=== PATIENT | female | born 1965 | race Caucasian/White ===

== ENCOUNTER 2018-02-09 14:13 | Emergency (ER) | payer OTHER ==
[2018-02-09] MEDS ORDERED: DIAZEPAM 2 MG TABLET ONE (14:47)
[2018-02-09] MEDS ORDERED: LIDOCAINE 1% MPF 2 ML AMPULE ONE (14:50)
[2018-02-09] MEDS ORDERED: LIDOCAINE 2% MPF 5 ML VIAL ONE (14:51)
--- NOTE | 2018-02-09 15:18 | RAD REPORT ---
EXAM DESCRIPTION: CT - Facial Bones W/ Mpr - 02/09/2018 2:51 pm CLINICAL HISTORY: Blunt force trauma to the face COMPARISON: None. TECHNIQUE: Axial 2 millimeter thick images of the facial bones were obtained with sagittal and coron al reconstruction imaging. All CT scans are performed using dose optimization technique as appropriate and may include automated exposure control or mA/KV adjustment according to patient size. FINDINGS: No fracture of the mandible. Condyles are normally positioned. No skullbase fracture. Mast oid air cells and middle ears are clear. Comminuted nasal bone fracture is present near the nasofront al suture. Minimal left displacement. Patient has left deviation of the nasal septum without acute se ptum fracture seen. The deviation may predate the acute injury. Paranasal sinuses are clear of acute finding. There is minimal mucosal thickening floor of the left m axillary sinus. No globe or orbital content abnormality. IMPRESSION: Comminuted nasal bone fracture with very minimal left displacement. Left deviation of the nasal septum which may predate the injury.
--- NOTE | 2018-02-09 16:00 | EDPHYS ---
Physician Documentation [facility] Name: Karine Yeboah Age: 53 yrs Sex: Female : 1965 Arrival Date: 02/09/2018 Time: 14:16 Bed 24 Private MD: Mer Pina K ED Physician Pedro Parson HPI: 02/09 14:44 This 53 yrs old Female presents to ER via Ambulatory with complaints of rn Facial Injury. 14:44 The patient or guardian reports injury, a laceration, pain. The complaints affect the rn nose. Context of injury: The problem was sustained at home, resulted from a direct blow. Associated signs and symptoms: Loss of consciousness: This patient did not experience any loss of consciousness. Pertinent positives: headache, Pertinent negatives: the patient has not experienced a loss of conciousness. Severity of symptoms: At their worst the symptoms were mild, in the emergency department the symptoms are unchanged. The patient has not experienced similar symptoms in the past. Reports getting something from top of closet, trophy fell and struck nose, did not hit head, + mild headache from pain, + laceration, + nosebleed that has resolved. . CLIENT EXPERIENCE CONSULTANT: 14:59 LMP N/A - . 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 - Social history:: Smoking status: Patient/guardian denies using tobacco. - Ebola Screening: : Patient denies exposure to infectious person Patient denies travel to an Ebola-affected area in the 21 days before illness onset. - Family history:: not pertinent. - Hospitalizations: : No recent hospitalization is reported. ROS: 14:44 Constitutional: Negative for fever, chills, and weight loss, Eyes: Negative for injury, rn pain, redness, and discharge, ENT: + nose injury Neuro: Negative for weakness, numbness, tingling, and seizure. Exam: 14:46 Constitutional: This is a well developed, well nourished patient who is awake, alert, rn and in no acute distress. Head/Face: Normocephalic, 1.5 cm linear superficial laceration to nasal bridge, no active bleeding, + left nare with dry blood. Eyes: Pupils equal round and reactive to light, extra-ocular motions intact. Lids and lashes normal. Conjunctiva and sclera are non-icteric and not injected. Cornea within normal limits. Periorbital areas with no swelling, redness, or edema. Neuro: Awake and alert, GCS 15, oriented to person, place, time, and situation. Cranial nerves II-XII grossly intact. Motor strength 5/5 in all extremities. Sensory grossly intact. Cerebellar exam normal. Normal gait. Vital Signs: 14:29 BP 143 / 90; Pulse 72; Resp 16; Temp 97.9(O); Pulse Ox 99% on R/A; Weight 68.04 kg; ss Height 5 ft. 6 in. (167.64 cm); Pain 4/10; 15:30 BP 137 / 81; Pulse 70; Resp 18; Pulse Ox 100% on R/A; Pain 3/10; tw2 14:29 Body Mass Index 24.21 (68.04 kg, 167.64 cm) Dominik Coma Score: 14:44 Eye Response: spontaneous(4). Verbal Response: oriented(5). Motor Response: obeys rn commands(6). Total: 15. 15:57 Eye Response: spontaneous(4). Verbal Response: oriented(5). Motor Response: obeys rn commands(6). Total: 15. Procedures: 15:57 Reduction: of the nose, using manipulation, Patient tolerated well. rn Laceration: 15:57 Wound Repair of 1.5cm ( 0.6in ) subcutaneous laceration to bridge of nose. Distal rn neuro/vascular/tendon intact. Anesthesia: Regional Block with 5 mls of 2% lidocaine. Wound prep: Extensive cleansing by nurse. Skin closed with 4 6-0 fast absorbing gut using interrupted sutures and sterile technique. Dressed with steri-strips. Patient tolerated well. MDM: 14:29 Patient medically screened. rn 15:57 Differential diagnosis: Contusion of Hematoma on Laceration of fracture. Data reviewed: rn vital signs, nurses notes, radiologic studies, CT scan, and as a result, I will discharge patient. Counseling: I had a detailed discussion with the patient and/or guardian regarding: the historical points, exam findings, and any diagnostic results supporting the discharge/admit diagnosis, radiology results, the need for outpatient follow up, to return to the emergency department if symptoms worsen or persist or if there are any questions or concerns that arise at home. Special discussion: I discussed with the patient/guardian in detail that at this point there is no indication for admission to the hospital. It is understood, however, that if the symptoms persist or worsen the patient needs to return immediately for re-evaluation. Based on the history and exam findings, there is no indication for further emergent testing or inpatient evaluation. I discussed with the patient/guardian the need to see the ENT specialist for further evaluation of the symptoms. ED course: Nasal fracture and laceration. 02/09 14:39 Order name: CT Facial Bones W/O Con; Complete Time: 15:21 rn 02/09 14:40 Order name: Suture Tray at Bedside; Complete Time: 14:41 rn Administered Medications: 14:41 Drug: Valium 2 mg Route: PO; tw2 15:30 Follow up: Response: No adverse reaction; Pain is decreased tw2 14:47 Not Given (md discretion): Lidocaine (1 %) 1 vials 5 ml Infiltration once; to bedside tw2 15:29 Drug: Lidocaine (2 %) Syringe 100 mg {Note: via Dr. Parson.} Volume: 5 ml; Route: tw2 Infiltration; Site: affected area; 16:06 Follow up: Response: No adverse reaction tw2 Disposition: 02/09/18 15:59 Discharged to Home. Impression: Fracture of nasal bones, Facial laceration. - Condition is Stable. - Discharge Instructions: Nasal Fracture, Sutured Wound Care. - Prescriptions for Augmentin 875- 125 mg Oral Tablet - take 1 tablet by ORAL route every 12 hours for 10 days; 20 tablet. - Medication Reconciliation Form, Thank You Letter, Antibiotic Education, Prescription Opioid Use, Work release form form. - Follow up: Serene Trevizo MD; When: 1 week; Reason: Recheck today's complaints, Re-evaluation by your physician. - Problem is new. - Symptoms have improved. Signatures: Dispatcher [employer] EDMS Pedro Parson MD MD rn Smirch, Shelby, RN RN ss Wise, Tara, RN RN tw2 Corrections: (The following items were deleted from the chart) 16:08 15:59 02/09/2018 15:59 Discharged to Home. Impression: Fracture of nasal bones; Facial tw2 laceration. Condition is Stable. Forms are Work release form, Medication Reconciliation Form, Thank You Letter, Antibiotic Education, Prescription Opioid Use. Follow up: Serene Trevizo; When: 1 week; Reason: Recheck today's complaints, Re-evaluation by your physician. Problem is new. Symptoms have improved. rn
--- NOTE | 2018-02-09 16:00 | ER ---
Nurse's Notes [facility] Name: Karine Yeboah Age: 53 yrs Sex: Female : 1965 Arrival Date: 02/09/2018 Time: 14:16 Bed 24 Private MD: Mer Pina K Diagnosis: Fracture of nasal bones;Facial laceration Presentation: 02/09 14:27 Presenting complaint: Patient states: Trophy fell from cabinet above striking patient ss on bridge of nose. Pt has approx 1.5 cm laceration to bridge of nose and reported bleeding from nostrils. Transition of care: patient was not received from another setting of care. Onset of symptoms was February 09, 2018. Risk Assessment: Do you want to hurt yourself or someone else? Patient reports no desire to harm self or others. Initial Sepsis Screen: Does the patient meet any 2 criteria? No. Patient's initial sepsis screen is negative. Does the patient have a suspected source of infection? No. Patient's initial sepsis screen is negative. Care prior to arrival: None. 14:27 Method Of Arrival: Ambulatory ss 14:27 Acuity: IRINA 4 ss DISTILLER: 14:59 LMP N/A - . 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 - Social history:: Smoking status: Patient/guardian denies using tobacco. - Ebola Screening: : Patient denies exposure to infectious person Patient denies travel to an Ebola-affected area in the 21 days before illness onset. - Family history:: not pertinent. - Hospitalizations: : No recent hospitalization is reported. Screenin:58 Abuse screen: Denies threats or abuse. Nutritional screening: No deficits noted. tw2 Tuberculosis screening: No symptoms or risk factors identified. Fall Risk None identified. Assessment: 14:30 General: Appears in no apparent distress. well groomed, Behavior is calm, cooperative, tw2 appropriate for age. Pain: Complains of pain in nose. Neuro: Level of Consciousness is awake, alert, obeys commands, Oriented to person, place, time, situation. Cardiovascular: Capillary refill < 3 seconds Patient's skin is warm and dry. Respiratory: Airway is patent Respiratory effort is even, unlabored, Respiratory pattern is regular, symmetrical. EENT: Reports pain bleeding from the left nare with deviation noted to the bridge of nose. Injury Description: Laceration sustained to bridge of nose. 15:30 Reassessment: Patient appears in no apparent distress at this time. No changes from tw2 previously documented assessment. Patient and/or family updated on plan of care and expected duration. Pain level reassessed. Patient is alert, oriented x 3, equal unlabored respirations, skin warm/dry/pink. 16:06 Reassessment: Patient appears in no apparent distress at this time. No changes from tw2 previously documented assessment. Patient and/or family updated on plan of care and expected duration. Pain level reassessed. Patient is alert, oriented x 3, equal unlabored respirations, skin warm/dry/pink. Vital Signs: 14:29 BP 143 / 90; Pulse 72; Resp 16; Temp 97.9(O); Pulse Ox 99% on R/A; Weight 68.04 kg; ss Height 5 ft. 6 in. (167.64 cm); Pain 4/10; 15:30 BP 137 / 81; Pulse 70; Resp 18; Pulse Ox 100% on R/A; Pain 3/10; tw2 14:29 Body Mass Index 24.21 (68.04 kg, 167.64 cm) ss Dominik Coma Score: 14:44 Eye Response: spontaneous(4). Verbal Response: oriented(5). Motor Response: obeys rn commands(6). Total: 15. 15:57 Eye Response: spontaneous(4). Verbal Response: oriented(5). Motor Response: obeys rn commands(6). Total: 15. ED Course: 14:16 Patient arrived in ED. sb2 14:16 Mer Pina MD is Private Physician. sb2 14:22 Bed in low position. Call light in reach. Adult w/ patient. Pulse ox on. NIBP on. tw2 14:27 Anastasiya Blanchard RN is Primary Nurse. tw2 14:28 Triage completed. ss 14:29 Pedro Parson MD is Attending Physician. rn 14:29 Arm band placed on right wrist. ss 14:[address] vm2 14:51 CT Facial Bones W/O Con In Process Unspecified. EDMS 14:58 CT completed. Patient tolerated procedure well. Patient moved back from CT. mw3 15:30 Assist provider with laceration repair on bridge of nose that was 2.5 cm. or less using tw2 Steri-strips. Set up tray. Performed by Pedro Parson MD Patient tolerated well. 15:59 Serene Trevizo MD is Referral Physician. rn 16:06 No provider procedures requiring assistance completed. Patient did not have IV access tw2 during this emergency room visit. Administered Medications: 14:41 Drug: Valium 2 mg Route: PO; tw2 15:30 Follow up: Response: No adverse reaction; Pain is decreased tw2 14:47 Not Given (md discretion): Lidocaine (1 %) 1 vials 5 ml Infiltration once; to bedside tw2 15:29 Drug: Lidocaine (2 %) Syringe 100 mg {Note: via Dr. Parson.} Volume: 5 ml; Route: tw2 Infiltration; Site: affected area; 16:06 Follow up: Response: No adverse reaction tw2 Outcome: 15:59 Discharge ordered by . rn 16:06 Discharged to home ambulatory, with family. tw2 16:06 Condition: stable 16:06 Discharge instructions given to patient, family, Instructed on discharge instructions, follow up and referral plans. medication usage, wound care, Demonstrated understanding of instructions, follow-up care, medications, wound care, Prescriptions given X 1. 16:08 Patient left the ED. tw2 Signatures: Dispatcher [employer] EDMS Pedro Parson MD MD rn Smirch, Shelby, RN RN ss Wise, Tara, RN RN tw2 Jo Vera Nayla Pineda 2 Cait Caputo mw3
== END 2018-02-09 16:08 | disposition home or self-care (01) ==
LOC: ER 14:13
PROC: 0JQ10ZZ Repair Face Subcutaneous Tissue and Fascia, Open Approach (ICD-10-PCS; principal; 2018-02-09)
PROC: 0NSBXZZ Reposition Nasal Bone, External Approach (ICD-10-PCS; 2018-02-09)
DX: S02.2XXA Fracture of nasal bones, initial encounter for closed fracture (principal); S01.21XA Laceration without foreign body of nose, initial encounter; W22.8XXA Striking against or struck by other objects, initial encounter; Y93.89 Activity, other specified; Y92.009 Unspecified place in unspecified non-institutional (private) residence as the place of occurrence of the external cause; Z88.1 Allergy status to other antibiotic agents; Z88.8 Allergy status to other drugs, medicaments and biological substances
CPT/HCPCS: 70486; 76377; 99284; J2001

== ENCOUNTER 2018-11-25 08:11 | Emergency (ER) | payer OTHER ==
--- OUTSIDE RECORDS SUMMARY | 2018-11-25 08:14 | XMS REPORT | Continuity of Care Document ---
:1965 Author Organization [employer] Care Team Providers Name Role Phone [employer] Unavailable Unavailable Problems Problem Status Onset Classification Date Comments Source Date Reported Fever Active Finding 03/08/[address] [facility] [place] Colitis Active Finding 03/08/[address] [facility] [place] Medications Medication Details Route Status Patient Ordering Order Source Instructions Provider Date Ciprofloxacin DAILY Active [facility] [place] Metronidazole Q8H Active [facility] [place] Azathioprine DAILY Active [facility] [place] Allergies, Adverse Reactions, Alerts Substance Category Reaction Severity Reaction Status Date Comments Source type Reported sulfamethoxaz Itching/H Allergy to Active [facility] Sub[facility] [place] trimethoprim Itching/H Allergy to Active [facility] will/R[facility] Sub[facility] [place] Immunizations No Data Provided for This Section Results Order Name Results Value Reference Date Interpretation Comments Source Range Laboratory White Blood 4.5 4.3 - 10.9 03/[address] [facility] Count /2016 [facility] [place] Laboratory Red Cell 13.8 12.1 - 03/[address] [facility] [facility] Distribution 15.2 [facility] Width [place] Laboratory Red Blood 3.38 3.86 - 03/[address] [facility] [address] [facility] Count 4.86 /2016 [facility] [place] Laboratory Platelet 205 152 - 406 03/[address] [facility] [address] [facility] Count /2017 [facility] [place] Laboratory Neutrophils % 76.3 41.7 - 03/[address] [facility] [address] [facility] 73.7 /2016 [facility] [place] [facility] Monocytes % 6.1 3.3 - 12.3 03/[address] [address] Studies /2017 [facility] [place] Laboratory Mean Platelet 8.7 7.6 - 11.3 03/[address] [facility] [address] Studies Volume /2016 [facility] [place] [facility] Mean 107.6 80 - 100 03/[address] [facility] [address] Studies Corpuscular /2016 [facility] - Volume [place] [facility] Mean 34.3 32.0 - 03/08 [facility]. Studies Corpuscular 36.0 /2016 [facility] Hemoglobin [place] Concent Laboratory Mean 37.0 27.0 - 03/08 [facility]. Studies Corpuscular 35.0 /2016 [facility] Hemoglobin [place] Laboratory Lymphocytes % 15.6 15.3 - 03/[address] [facility] [address] Studies 44.8 /2017 [facility] [place] [facility] Hemoglobin 12.5 12.0 - 03/[address] [facility] [address] Studies 15.0 /2016 [facility] [place] [facility] Hematocrit 36.4 36.0 - 03/08 [facility]. Studies 45.0 /2016 [facility] [place] Laboratory Eosinophils % 1.3 0 - 4.4 03/[address] [facility] [address] Studies [facility] [place] [facility] Clumped Clumped 03/08 [facility]. Studies Platelets Platelets /2016 [facility] [place] Laboratory Blood Blood 03/08 [facility]. Studies Morphology Morphology /2016 [facility] - Comment Comment [place] [facility] Basophils % 0.7 0 - 1.3 03/08 [facility]. Studies [facility] [place] [facility] Absolute 3.4 1.8 - 8.0 03/08 [facility]. Studies Neutrophil /2016 [facility] [place] [facility] Absolute 0.3 0.1 - 1.3 03/08 [facility]. Studies Monocytes [facility] - (CBC) [place] [facility] Absolute 0.7 0.7 - 4.9 03/08 [facility]. Studies Lymphocytes [facility] - (CBC) [place] [facility] Absolute 0.1 0 - 0.5 03/08 [facility]. Studies Eosinophils [facility] - (CBC) [place] Laboratory Absolute 0.0 0 - 0.5 03/08 [facility]. Studies Basophils [facility] - (CBC) [place] [facility] Total 0.8 0.3 - 1.2 03/08 [facility]. Studies Bilirubin [facility] [place] [facility] Sodium Level 136 135 - 145 03/[address] [facility] [address] Studies [facility] [place] Laboratory Serum Total 6.0 6.0 - 8.3 03/08 [facility] Studies Protein /2017 [employer] - [place] Laboratory Potassium 4.5 3.6 - 5.0 03/08 [facility]. Studies Level /2016 [facility] [place] Laboratory Phosphorus 2.5 2.5 - 4.3 03/08 [facility]. Studies Level /2016 [facility] [place] Laboratory Magnesium 1.9 1.8 - 2.5 03/08 [facility] Studies Level /2016 [facility] [place] [facility] Glucose Level 79 65 - 120 03/08 [facility]. Studies /2016 [facility] [place] Laboratory Globulin 2.6 2.3 - 3.5 03/08 [facility]. Studies /2017 [facility] [place] Laboratory Estimat >90 90 03/08 [facility]. Studies Glomerular /2016 [facility] - Filtration [place] Rate Laboratory Creatinine 0.51 0.44 - 03/08 [facility] Studies 1.00 /2016 [employer] - [place] Laboratory Chloride 106 101 - 111 03/08 [facility] Studies Level /2016 [facility] [place] Laboratory Carbon 25 21 - 31 03/08 [facility] Studies Dioxide Level /2016 kes - [place] Laboratory Calcium Level 8.7 8.5 - 10.5 03/08 [facility]. Studies /2016 [facility] [place] Laboratory Blood Urea 6 6 - 20 03/08 [facility] Studies Nitrogen /2016 [employer] - [place] Laboratory Aspartate 19 10 - 42 03/08 [facility] Studies Amino Transf /2016 ernestina - (AST/SGOT) [place] [facility] Alkaline 71 42 - 121 03/08 [facility] Studies Phosphatase /2016 [facility] [place] Laboratory Albumin/Globu 1.3 1.1 - 1.8 03/08 [facility] Studies juan Ratio /2016 [facility] [place] Laboratory Albumin 3.4 3.2 - 5.5 03/08 [facility]. Studies /2017 [facility] - [place] Laboratory Alanine 14 10 - 60 03/08 [facility] Studies Aminotransfer /2016 [employer] - ase [place] (ALT/SGPT) Laboratory Vitamin B12 289 180 - 914 03/07 [facility] Studies Level /2017 [facility] [place] Laboratory Serum Folate 17.7 5.21 03/07 [facility]. Studies /2017 [facility] - [place] Laboratory Serum Serum 03/[address] [facility] [address] Studies /2016 [facility] - Test, Test, [place] Qualitative Qualitative Laboratory Macrocytosis Macrocytosi 03/[address] [facility] [address] Studies s [facility] [place] Laboratory Direct 0.1 0 - 0.2 03/[address] [facility] [address] Studies Bilirubin [facility] [place] Laboratory Lipase 33 22 - 51 03/[address] [facility] [address] Studies [facility] [place] Laboratory Urine pH 6.0 03/[address] [facility] [address] Studies [facility] [place] Laboratory Urine Total Urine Total 03/[address] [facility] [address] Studies Protein Protein [facility] [place] Laboratory Urine <1.005 03/[address] [facility] [address] Studies Specific [facility] - [place] Laboratory Urine Nitrite Urine 03/06 [facility]. Studies Nitrite [facility] [place] Laboratory Urine Urine 03/06 [facility]. Studies Leukocyte Leukocyte [facility] - Esterase Esterase [place] Laboratory Urine Ketones Urine 03/06 [facility]. Studies Ketones [facility] [place] Laboratory Urine Glucose Urine 03/[address] [facility] [address] Studies Glucose [facility] - [place] Laboratory Urine Blood Urine Blood 03/[address] [facility] [address] Studies [facility] [place] Laboratory Urine WBC <5 03/[address] [facility] [address] Studies [facility] [place] Laboratory Urine <5 03/06 [facility]. Studies Squamous [facility] - Epithelial [place] Cells Laboratory Urine RBC <5 03/06 [facility]. Studies [facility] [place] Laboratory Urine Culture Urine 03/06 [facility]. Studies Reflexed Culture [facility] - Reflexed [place] Laboratory Urine <20 03/06 [facility]. Studies Bacteria [facility] [place] Pathology Reports No Data Provided for This Section Diagnostic Reports No Data Provided for This Section Consultation Notes No Data Provided for This Section Discharge Summaries No Data Provided for This Section History and Physicals No Data Provided for This Section Vital Signs Vital Sign Value Date Comments Source Temperature Oral (F) 98.7 F 03/08/[address] [facility] [address] [facility] [place] Heart Rate 57 03/08/[address] [facility] [address] [facility] [place] Respitory Rate 16 03/08/2017 [facility] [place] Systolic (mm Hg) 120 03/08/2017 [facility] [place] Diastolic (mm Hg) 57 03/08/2017 ALEJO Gomez Height 66 03/08/2017 ALEJO Gomez Weight 135.30 03/08/2017 ALEJO Lopezosporcollin Encounters Location Location Encounter Encounter Reason Attending ADM DC Status Source Details Type Number For Provider Date Date Visit ALEJO Sutherland Discharged [id number] 03/07 03/08 [facility]patient 55 /[place] [facility] [place] Procedures Procedure Code Date Perfomer Comments Source Abdomen & Pelvis [id number] 03/06/2017 ALEJO Anderson - W Contrast [place] Assessment and Plan No Data Provided for This Section Plan of Care Plan of Care Date Source Instructions 03/08/2017 ALEJO [place] - [place] DI for Abdominal Pain-Adult DI for Colitis Instructions 03/08/2017 ALEJO [facility] - [place] DI for Abdominal Pain-Adult DI for Colitis Social History Social History Date Source Query Response Date Recorded Comment 03/08/2017 ALEJO Gomez Alcohol Use? Yes March 07, 2017 7:37am CD- Drugs? No March 07, 2017 7:37am Query Response Start Date Stop Date Smoking Status Never smoker Family History Value Date Source Query Response Instance Date Recorded Comment 03/08/2017 ALEJO Andreson - [place] Nurses notes Afib Mother March 07, 2017 7:37am Medical History Cancer Mother March 07, 2017 7:37am Medical History Heart disease Father March 07, 2017 7:37am Advance Directives Order Name Results Value Date Source Advance Directives Advance Directives Advance Directive Response Recorded Date/Time 03/08/2017 ALEJO Anderson - Does Patient Have Living Will [place] Yes March 07, 2017 6:00pm Durable Power of Hosiery Operator for Health Care Yes March 07, 2017 7:37am Would you like additional information Yes March 07, 2017 3:20am Functional Status No Data Provided for This Section
[2018-11-25 09:00] LABS: Absolute Lymphocytes (CBC) 0.7 K/uL (0.7-4.9); Basophils % 0.7 % (0-1.3); Hematocrit 41.2 % (36.0-45.0); Lymphocytes % 19.2 % (15.3-44.8); MPV 8.4 fL (7.6-11.3)
[2018-11-25 09:09] LABS: Albumin 3.7 g/dL (3.4-5.0); Bilirubin Total 0.5 mg/dL (0.2-1.0); Potassium 3.9 mmol/L (3.5-5.1); Protein, Total 7.8 g/dL (6.4-8.2)
[2018-11-25] MEDS ORDERED: KETOROLAC 30 MG/ML INJ ONE (09:20)
--- NOTE | 2018-11-25 09:24 | EDPHYS ---
Physician Documentation [facility] Name: Karine Yeboah Age: 53 yrs Sex: Female : 1965 Arrival Date: 11/25/2018 Time: 08:13 Bed 5 Private MD: Scott Tavera P; Marshall, Jana, K ED Physician Jeffery Jean HPI: 11/25 08:28 This 53 yrs old Female presents to ER via Ambulatory with complaints of Leg emiliano Pain, Low Back Pain, InQuicker. 08:28 The patient presents with pain, that is acute. The complaints affect the. Context: The emiliano problem was sustained at home. Onset: The symptoms/episode began/occurred 5 day(s) ago. Modifying factors: The symptoms are alleviated by nothing. the symptoms are aggravated by nothing. Associated signs and symptoms: Pertinent positives: burning, of the right leg and left leg. Severity of symptoms: At their worst the symptoms were mild, moderate, in the emergency department the symptoms are unchanged. The patient has not experienced similar symptoms in the past. 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 - Social history:: Smoking status: Patient/guardian denies using tobacco. - Ebola Screening: : Patient negative for fever greater than or equal to 101.5 degrees Fahrenheit, and additional compatible Ebola Virus Disease symptoms Patient denies exposure to infectious person Patient denies travel to an Ebola-affected area in the 21 days before illness onset No symptoms or risks identified at this time. - Family history:: not pertinent. ROS: 08:28 Constitutional: Negative for fever, chills, and weight loss, Eyes: Negative for injury, emiliano pain, redness, and discharge, ENT: Negative for injury, pain, and discharge, Neck: Negative for injury, pain, and swelling, Cardiovascular: Negative for chest pain, palpitations, and edema, Respiratory: Negative for shortness of breath, cough, wheezing, and pleuritic chest pain, Abdomen/GI: Negative for abdominal pain, nausea, vomiting, diarrhea, and constipation, : Negative for injury, bleeding, discharge, and swelling, Skin: Negative for injury, rash, and discoloration, Neuro: Negative for headache, weakness, numbness, tingling, and seizure, Psych: Negative for depression, anxiety, suicide ideation, homicidal ideation, and hallucinations, Allergy/Immunology: Negative for hives, rash, and allergies, Endocrine: Negative for neck swelling, polydipsia, polyuria, polyphagia, and marked weight changes, Hematologic/Lymphatic: Negative for swollen nodes, abnormal bleeding, and unusual bruising. 08:28 Back: Positive for pain at rest, Negative for injury or acute deformity, decreased range of motion, pain with movement, radiated pain, acute changes. Exam: 08:28 Constitutional: This is a well developed, well nourished patient who is awake, alert, emiliano and in no acute distress. Head/Face: Normocephalic, atraumatic. Eyes: Pupils equal round and reactive to light, extra-ocular motions intact. Lids and lashes normal. Conjunctiva and sclera are non-icteric and not injected. Cornea within normal limits. Periorbital areas with no swelling, redness, or edema. ENT: Nares patent. No nasal discharge, no septal abnormalities noted. Tympanic membranes are normal and external auditory canals are clear. Oropharynx with no redness, swelling, or masses, exudates, or evidence of obstruction, uvula midline. Mucous membranes moist. Neck: Trachea midline, no thyromegaly or masses palpated, and no cervical lymphadenopathy. Supple, full range of motion without nuchal rigidity, or vertebral point tenderness. No Meningismus. Chest/axilla: Normal chest wall appearance and motion. Nontender with no deformity. No lesions are appreciated. Cardiovascular: Regular rate and rhythm with a normal S1 and S2. No gallops, murmurs, or rubs. Normal PMI, no JVD. No pulse deficits. Respiratory: Lungs have equal breath sounds bilaterally, clear to auscultation and percussion. No rales, rhonchi or wheezes noted. No increased work of breathing, no retractions or nasal flaring. Abdomen/GI: Soft, non-tender, with normal bowel sounds. No distension or tympany. No guarding or rebound. No evidence of tenderness throughout. Back: No spinal tenderness. No costovertebral tenderness. Full range of motion. Skin: Warm, dry with normal turgor. Normal color with no rashes, no lesions, and no evidence of cellulitis. MS/ Extremity: Pulses equal, no cyanosis. Neurovascular intact. Full, normal range of motion. Neuro: Awake and alert, GCS 15, oriented to person, place, time, and situation. Cranial nerves II-XII grossly intact. Motor strength 5/5 in all extremities. Sensory grossly intact. Cerebellar exam normal. Normal gait. Psych: Awake, alert, with orientation to person, place and time. Behavior, mood, and affect are within normal limits. Vital Signs: 08:26 BP 133 / 79; Pulse 82; Resp 16; Temp 97.6; Pulse Ox 100% on R/A; Weight 74.84 kg; sg Height 5 ft. 5 in. (165.10 cm); Pain 4/10; 10:20 BP 122 / 80; Pulse 14; Resp 16; Temp 97.6; Pulse Ox 100% on R/A; Pain 4/10; sg 08:26 Body Mass Index 27.46 (74.84 kg, 165.10 cm) MDM: 08:17 Patient medically screened. [facility] 08:31 Data reviewed: vital signs, nurses notes, lab test result(s). [facility] 11/25 08:28 Order name: Urine Dipstick--Ancillary (enter results) 11/25 08:28 Order name: Urine --Ancillary (enter results) 11/25 08:28 Order name: CBC with Diff; Complete Time: 09:14 [facility] 11/25 08:28 Order name: Comprehensive Metabolic Panel; Complete Time: 09:14 [facility] 11/25 08:28 Order name: Lipase; Complete Time: 09:14 [facility] 11/25 08:28 Order name: Urine Culture [facility] 11/25 08:28 Order name: Urine Dipstick-Ancillary (obtain specimen); Complete Time: 08:30 [facility] 11/25 08:28 Order name: Urine Test (obtain specimen); Complete Time: 08:30 [facility] 11/25 09:20 Order name: IV; Complete Time: 09:35 sg Administered Medications: 09:30 Drug: TORadol 30 mg Route: IVP; Site: right forearm; sg Disposition: 11/25/18 09:23 Discharged to Home. Impression: Malaise and fatigue, Low back pain. - Condition is Stable. - Discharge Instructions: Weakness, Weakness, [id number]. - Prescriptions for Tylenol- Codeine #3 300-30 mg Oral Tablet - take 2 tablets by ORAL route every 6 hours As needed; 26 tablet. - Work release form, Medication Reconciliation Form, Thank You Letter, Antibiotic Education, Prescription Opioid Use form. - Follow up: Mer Pina MD; When: 2 - 3 days; Reason: Recheck today's complaints, Continuance of care, Re-evaluation by your physician. - Problem is new. - Symptoms have improved. Signatures: Dispatcher [employer] EDMS Chandu Stallworth RN RN Jeffery Cintron MD MD cha Botello, Elizabeth eb Corrections: (The following items were deleted from the chart) 09:25 09:23 11/25/2018 09:23 Discharged to Home. Impression: Malaise and fatigue. Condition emiliano is Stable. Forms are Medication Reconciliation Form, Thank You Letter, Antibiotic Education, Prescription Opioid Use. Follow up: Mer Pina; When: 2 - 3 days; Reason: Recheck today's complaints, Continuance of care, Re-evaluation by your physician. Problem is new. Symptoms have improved. emiliano 10:35 09:25 11/25/2018 09:23 Discharged to Home. Impression: Malaise and fatigue; Low back eb pain. Condition is Stable. Discharge Instructions: Weakness, Weakness, [id number]. Prescriptions for Tylenol-Codeine #3 300-30 mg Oral Tablet - take 2 tablets by ORAL route every 6 hours As needed; 26 tablet. and Forms are Medication Reconciliation Form, Thank You Letter, Antibiotic Education, Prescription Opioid Use. Follow up: Mer Pina; When: 2 - 3 days; Reason: Recheck today's complaints, Continuance of care, Re-evaluation by your physician. Problem is new. Symptoms have improved. emiliano
--- NOTE | 2018-11-25 09:24 | ER ---
Nurse's Notes [facility] Name: Karine Yeboah Age: 53 yrs Sex: Female : 1965 Arrival Date: 11/25/2018 Time: 08:13 Bed 5 Private MD: Scott Tavera P; Mer Pina K Diagnosis: Malaise and fatigue;Low back pain Presentation: 11/25 08:24 Presenting complaint: Patient states: Several days ago, reports having lower abd/pelvic sg pain and urinary symptoms, was seen by her PCP/OBGYN and diagnosed with bladder infection, started on abx. reports now has developed pain in the lower back and sensitivity and pain in the lower extremities. Transition of care: patient was not received from another setting of care. Onset of symptoms was November 25, 2018. Risk Assessment: Do you want to hurt yourself or someone else? Patient reports no desire to harm self or others. Initial Sepsis Screen: Does the patient meet any 2 criteria? No. Patient's initial sepsis screen is negative. Does the patient have a suspected source of infection? Yes: Dysuria/Frequency/Urgency/UTI. Care prior to arrival: None. 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 - Social history:: Smoking status: Patient/guardian denies using tobacco. - Ebola Screening: : Patient negative for fever greater than or equal to 101.5 degrees Fahrenheit, and additional compatible Ebola Virus Disease symptoms Patient denies exposure to infectious person Patient denies travel to an Ebola-affected area in the 21 days before illness onset No symptoms or risks identified at this time. - Family history:: not pertinent. Screenin:30 Abuse screen: Denies threats or abuse. Denies injuries from another. Nutritional sg screening: No deficits noted. Tuberculosis screening: No symptoms or risk factors identified. Never had TB. Fall Risk None identified. Assessment: 10:30 General: Appears in no apparent distress. well groomed, well developed, well nourished, sg Behavior is calm, cooperative, appropriate for age. Pain: Complains of pain in lumbar area and right leg and left leg Quality of pain is described as aching. Neuro: Level of Consciousness is awake, alert, obeys commands, Oriented to person, place, time, [facility] [employer] Work[employer] are equal bilaterally Moves all extremities. Full function Gait is steady, Speech is normal, Facial symmetry appears normal, Pupils are PERRLA, Reports muscle soreness in BLE, as if from running several miles. Cardiovascular: Capillary refill is brisk in bilateral fingers Patient's skin is warm and dry. Chest pain is denied. Respiratory: Airway is patent Respiratory effort is even, unlabored, Respiratory pattern is regular, symmetrical. GI: Abdomen is round non-distended, Bowel sounds. : No signs and/or symptoms were reported regarding the genitourinary system. EENT: No signs and/or symptoms were reported regarding the EENT system. Derm: Skin is pink, warm \T\ dry. Musculoskeletal: Circulation, motion, and sensation intact. Range of motion: Reports pain in right leg and left leg. Vital Signs: 08:26 BP 133 / 79; Pulse 82; Resp 16; Temp 97.6; Pulse Ox 100% on R/A; Weight 74.84 kg; sg Height 5 ft. 5 in. (165.10 cm); Pain 4/10; 10:20 BP 122 / 80; Pulse 14; Resp 16; Temp 97.6; Pulse Ox 100% on R/A; Pain 4/10; sg 08:26 Body Mass Index 27.46 (74.84 kg, 165.10 cm) ED Course: 08:13 Patient arrived in ED. as 08:13 Scott Tavera MD is Private Physician. as 08:13 Mer Pina MD is Private Physician. as 08:17 Jeffery Jean MD is Attending Physician. emiliano 08:19 Arm band placed on. sg 08:24 Chandu Stallworth, TONNY is Primary Nurse. sg 08:26 Triage completed. sg 08:42 Initial lab(s) drawn, by me, sent to lab. Inserted saline lock: 20 gauge in right em1 forearm, using aseptic technique. Blood collected. 09:22 Mer Pina MD is Referral Physician. emiliano 10:30 Patient has correct armband on for positive identification. Bed in low position. Call sg light in reach. Side rails up X2. Pulse ox on. NIBP on. Warm blanket given. Head of bed elevated. 10:30 No provider procedures requiring assistance completed. IV discontinued, intact, sg bleeding controlled, No redness/swelling at site. Pressure dressing applied. Administered Medications: :30 Drug: TORadol 30 mg Route: IVP; Site: right forearm; sg Outcome: :23 Discharge ordered by . emiliano 10:30 Discharged to home ambulatory, with family. 10:30 Condition: good 10:30 Discharge instructions given to patient, Instructed on discharge instructions, follow up and referral plans. no drinking with medication, no driving heavy equipment, medication usage, safety practices, Demonstrated understanding of instructions, follow-up care, medications, Prescriptions given X 1. 10:35 Patient left the ED. eb Signatures: Chandu Stallworth, RN Jeffery Osuna MD MD cha Martinez, Yossi Shay1 Alba Potts
[2018-11-25 09:31] LABS: Urine Blood NEGATIVE (NEG); Urine Glucose NEGATIVE (NEG); Urine Protein NEGATIVE (NEG)
== END 2018-11-25 10:35 | disposition home or self-care (01) ==
LOC: ER 08:11
DX: M54.5 Low back pain (principal); R53.81 Other malaise; R53.83 Other fatigue; Z88.1 Allergy status to other antibiotic agents
CPT/HCPCS: 36415; 80053; 81003; 81025; 83690; 85025; 87086; 87088; 96374; 99284